=== PATIENT | male | born 1950 | race Caucasian/White ===

== ENCOUNTER → 2021-07-17 | Outpatient (CLI) | payer OTHER | LOC: MRI 10:11 | DX: M54.2 Cervicalgia (principal); M48.02 Spinal stenosis, cervical region; M25.78 Osteophyte, vertebrae | CPT/HCPCS: 72141 ==

== ENCOUNTER → 2021-10-22 | Outpatient (CLI) | payer OTHER | LOC: LAB 16:11 | DX: M10.9 Gout, unspecified (principal) | CPT/HCPCS: 36415; 84550 ==